=== PATIENT | female | born 1990 | race Caucasian/White ===

== ENCOUNTER 2017-06-09 20:50 | Emergency (ER) | payer SELFPAY ==
[~2017-06-09] VITALS: Ht 162.6 cm; Wt 81.0 kg
[2017-06-09 20:54] VITALS: Ht 162.6 cm; Wt 81.0 kg
== END 2017-06-10 | disposition left against medical advice (07) ==
LOC: FTE 20:50
DX: Z53.21 Procedure and treatment not carried out due to patient leaving prior to being seen by health care provider (principal)